=== PATIENT | female | born 1940 | race Caucasian/White ===

== ENCOUNTER 2024-01-16 11:32 | Emergency (ER) | payer MEDICARE, OTHER, SELFPAY ==
[2024-01-16 11:34] VITALS: BP 143/68
--- NOTE | 2024-01-16 13:01 | ED.GENMED ---
History of Present Illness
General
Chief Complaint: Musculo-Skeletal Complaint
Source: patient
Exam Limitations: none
Time Seen by Provider: 01/16/24 11:52
Nursing documentation reviewed up to this point in time: agreed with
History of Present Illness
History of Present Illness:
83 y/o F with h/o HTN
here with left ankle pain after slipping and inverting her left ankle while walking last night
is able to put some weight on it but it is slightly swollen and painful
took tylenol for pain
no foot pain
no knee pain
Past History
Past History
ED Past Medical History: HTN, Hypercholesterolemia and Other (Diverticulitis)
ED Past Surgical History: Bowel resection and Cholecystectomy
Social History
Living: with family
Review of Systems
Review of Systems
Allergies reviewed?: Yes
All Other Systems: Not applicable
Phy Exam
Physical Exam
Physical Exam:
GENERAL: Alert , in no apparent distress, comfortable at rest
HEAD: NCAT
CV: 2+ DP PULSES B/L
NEUROLOGICAL: Alert and oriented, no focal neuro deficits, , 5/5 strength, sensation intact, ambulation slight limp right leg
SKIN: Warm and dry,
MUSCULOSKELETAL: mild STS right ankle with tenderness to malleolus laterally; pain with inversion and eversion;
no tenderness at the base of the 5th metatarsal, no other foot tenderness
no knee/prox tib/fib tenderness, full painless ROM;
PSYCH: Normal and appropriate interaction.
Course
Orders/Labs/Results
Orders:
Orders
01/16/24 11:38
CR Ankle - Left Min 3 Views Urgent
Comment:
Reason For Exam: fall
Vital Signs
Initial and Last Documented VS:
Initial Vital Signs
Temp Pulse Resp BP Pulse Ox
98.1 F 85 18 143/68 94
01/16/24 11:34 01/16/24 11:34 01/16/24 11:34 01/16/24 11:34 01/16/24 11:34
Last Documented Vital Signs
Temp Pulse Resp BP Pulse Ox
98.1 F 85 18 143/68 94
01/16/24 11:34 01/16/24 11:34 01/16/24 11:34 01/16/24 11:34 01/16/24 11:34
MDM/Problems Addressed
Differential Diagnosis Includes:
ankle sprain, ankle fracture
MDM/Problems Addressed:
83 forbes/o F
inverison ankle injury last night
able to partially weight bear
swelling na dpain laterally
no foot tendneress, no knee pain
ankle xrya indep reviewed and neg
suspect sprain
placed in boot and pt has cane and walker at home
rice
*Critical Care Note
Total Time (30-74mins, 75-104mins- exclusive of procedures): Not Applicable
ED Attending Note
-
Portions of this chart may have been created with voice recognition software.� Occasional wrong word or��sound alike� substitutions may have occurred due to the inherent limitations of voice recognition software.
Discharge Plan
Departure
Patient Disposition: Home (Routine Discharge)
Date of Disposition: 01/16/24
Time of Disposition: 13:06
Patient with high blood pressure during this ER visit?: No
Condition: Fair
Discharge Problem:
Left ankle sprain
Instructions: Sprain (DC)
Prescriptions:
No Action
atorvastatin 10 MG tablet
20 mg PO HS
aspirin 81 MG tablet,chewable
81 mg PO DAILY
amlodipine-benazepril 1 EACH capsule
1 ea PO HS
doxycycline hyclate 100 MG capsule
100 mg PO Q12 7 Days Qty: 14 0RF
metronidazole 500 MG tablet
500 mg PO TID 7 Days Qty: 21 0RF
fluconazole 150 MG tablet
150 mg PO DAILY 1 Days Qty: 1 0RF
Rx Instructions:
for development of vaginal yeast infection
Referrals:
Terri Dominique CRNP [Family Provider] -
Activity Restrictions/Additional Instructions:
YOUR XRAY APPEARS NEGATIVE FOR FRACTURE
ICE OFF AND ON, ELEVATE
WHEN YOU WALK, USE THE BOOT AND EITHER A WALKER OR A CANE
TYLENOL FOR PAIN
WITHIN A WEEK OR SO YOU SHOULD BE ABLE TO WALK WITHOUT THE BOOT, IF YOU ARE NOT, PLEASE SEE ORTHO.
Interventions
Interventions:
*Risk Screen - Suicide Last Done: 01/16/24 11:34
*General Assessment Last Done: 01/16/24 11:34
*Neglect/Abuse Screening Last Done: 01/16/24 13:14
ED- Fall Risk Assessment Last Done: 01/16/24 11:59
*ED COVID-19 Vaccine History Last Done: 01/16/24 11:34
*Nursing Disposition Last Done: 01/16/24 13:15
ED-Musculoskeletal Assessment Last Done: 01/16/24 11:59
Discharge Date and Time
Discharge Date/Time: 01/16/24 13:15
Print Language: MALAY
== END 2024-01-16 13:15 | disposition home or self-care (01) ==
LOC: EMR 11:32
PROVIDERS: EMERGENCY PHYSICIAN Emergency Medicine; FAMILY PHYSICIAN Nurse Practitioner Family
DX: S93.402A Sprain of unspecified ligament of left ankle, initial encounter (principal); W18.39XA Other fall on same level, initial encounter; Y93.01 Activity, walking, marching and hiking; I10 Essential (primary) hypertension; E78.00 Pure hypercholesterolemia, unspecified; K57.92 Diverticulitis of intestine, part unspecified, without perforation or abscess without bleeding; Z90.49 Acquired absence of other specified parts of digestive tract; Z98.0 Intestinal bypass and anastomosis status
CPT/HCPCS: 99283; 29515; 73610

== ENCOUNTER 2024-08-31 09:00 | Emergency (ER) | payer MEDICARE, OTHER, SELFPAY ==
[2024-08-31 09:13] VITALS: BP 96/68
[2024-08-31 09:39] LABS: % Basophils 0.8 % (0-2); % Eosinophils 3.9 % (0-6); % Immature Granulocytes 0.7 % (0-0.5); % Monocytes 8.1 % (1.7-9.3); % Neutrophils 44.5 % (42.2-75.2); Absolute Basophils 0.1 10^3/uL (0-0.2); Absolute Eosinophils 0.3 10^3/uL (0-0.7); Absolute Immature Granulocytes 0.1 10^3/uL (0-0.05); Absolute Lymphocytes 3.6 10^3/uL (1.2-3.4); Absolute Monocytes 0.7 10^3/uL (0.1-0.6); Absolute Neutrophils 3.8 10^3/uL (1.4-6.5); Hematocrit 40.4 % (37.0-47.0); Hemoglobin 13.4 g/dL (12.0-16.0); Mean Corp Hgb Conc. 33.2 g/dL (33.0-37.0); Mean Corpuscular Hgb 30.9 pg (27.0-31.0); Mean Corpuscular Volume 93.3 fL (81.0-99.0); Mean Platelet Volume 10.1 fL (7.4-10.4); Nucleated Red Blood Cells % 0 %; Platelet Count 244 10^3/uL (130-400); Red Blood Cell Count 4.33 10^6/uL (4.20-5.40); Red Cell Dist. Width 14.6 % (11.5-14.5); White Blood Cell Count 8.5 10^3/uL (4.8-10.8)
[2024-08-31 09:49] LABS: ALT (SGPT) 30 U/L (0-35); AST (SGOT) 24 U/L (14-36); Albumin 3.7 g/dl (3.5-5.0); Alkaline Phosphatase 61 U/L (38-126); Blood Urea Nitrogen 15 mg/dl (7-17); Calcium 9.9 mg/dl (8.4-10.2); Carbon Dioxide 29 mmol/L (22-30); Chloride 104 mmol/L (98-107); Glucose 116 mg/dl (70-99); Potassium 4.6 mmol/L (3.5-5.1); Sodium 139 mmol/L (135-145); Total Bilirubin 0.6 mg/dl (0.2-1.3); Total Protein 6.2 g/dl (6.3-8.2); eGFR > 60.00
[2024-08-31 10:19] LABS: TSH 1.39 uIU/ml (0.47-4.68)
[2024-08-31 11:04] VITALS: BP 146/97
--- NOTE | 2024-08-31 11:16 | ED.GENMED ---
History of Present Illness
General
Chief Complaint: Heart Rate Problem
Source: patient
Exam Limitations: none
Time Seen by Provider: 08/31/24 11:01
History of Present Illness
History of Present Illness:
See MDM
Past History
Past History
ED Past Medical History: HTN, Hypercholesterolemia and Other (Diverticulitis)
ED Past Surgical History: Bowel resection and Cholecystectomy
Social History
Living: with family
Phy Exam
Physical Exam
Physical Exam:
See MDM
Course
Orders/Labs/Results
Orders:
Orders
08/31/24 09:05
EKG [Electrocardiogram (*1)] Urgent
Reason for Study: Tachycardia
EKG- Treatment ONCE
08/31/24 09:25
Complete Blood Count/With Diff Urgent
Comprehensive Metabolic Panel Urgent
TSH Urgent
08/31/24 11:15
CT Chest PE Study Urgent
Comment:
Reason For Exam: SOB, tachycardic
08/31/24 11:16
US Periph Venous LOWER Ext RT Urgent
Comment:
Reason For Exam: R calf swelling and pain
08/31/24 11:21
NT-proBNP Urgent
Troponin I Urgent
Abnormal Lab Results
08/31/24
09:25
RDW 14.6 H %
(11.5-14.5)
Abs Immat Gran (auto) 0.1 H 10^3/uL
(0-0.05)
Absolute Lymphs (auto) 3.6 H 10^3/uL
(1.2-3.4)
Absolute Monos (auto) 0.7 H 10^3/uL
(0.1-0.6)
Immature Gran % 0.7 H %
(0-0.5)
Glucose 116 H mg/dl
(70-99)
Total Protein 6.2 L g/dl
(6.3-8.2)
08/31/24 09:25
08/31/24 09:25
Vital Signs
Initial and Last Documented VS:
Initial Vital Signs
Temp Pulse Resp BP Pulse Ox
98.1 F 129 18 96/68 98
08/31/24 09:13 08/31/24 09:13 08/31/24 09:13 08/31/24 09:13 08/31/24 09:13
Last Documented Vital Signs
Temp Pulse Resp BP Pulse Ox
98.1 F 89 18 146/97 97
08/31/24 09:13 08/31/24 13:00 08/31/24 13:00 08/31/24 11:04 08/31/24 13:00
MDM/Problems Addressed
Differential Diagnosis Includes:
HPI and MDM Narrative:
84-year-old female presenting for evaluation of shortness of breath and tachycardia. Patient becoming more short of breath with exertion. This appears to be an ongoing issue. She has noted that her heart rate has been going fast with minimal
exertion. She did follow-up with her primary care doctor and was told that she should follow-up with cardiology. She made appointment with a clip coater with Dr. Solorzano but she does not have an appointment until 6 weeks or so. Incidentally,
patient also complained of right calf pain and swelling.
On exam, patient is mildly tachycardic and I have noted multiple PVCs. Blood work done prior to my evaluation and she has a normal TSH and electrolytes. Will add on BNP and troponin. Given her shortness of breath with tachycardia, I am concerned
about possible PE. Will obtain CT PE
Physical exam
General: Well appearing and non-toxic
HEENT: protecting airway
Neck: appears supple
CV: No evidence of cyanosis. Tachycardic
Resp: No accessory muscle use. Lungs clear
Abd: Non-distended
Extremities: +1 pitting edema to right leg
Neuro: alert
Psych: Normal affect
Skin: Intact
Problems Addressed including Acute and Chronic Conditions affecting care:
1. Shortness of breath with exertion
Acuity: acute
Prognosis: stable
Details: Given tachycardia, will obtain CT to rule out PE
2. Right leg pain
Acuity: acute
Prognosis: stable
Details: Will obtain ultrasound rule out DVT
Updates
CT chest negative for PE. We discussed the nonspecific bronchiolitis and pulmonary nodules. Both patient and made aware.
Ultrasound negative for DVT.
I did curbside cardiology and question whether or not patient should be placed on beta-azra. Cardiology suggested having her seen in the office expeditiously rather than started medicine since she is a first time patient
Differential Diagnosis (but not limited to): Pulmonary embolism, symptomatic tachycardia, A-fib, DVT
Testing considered: D-dimer
Drug therapy (if applicable): OTC meds, please see d/c instruction regarding Rx drugs
Amount and/or Complexity of Data Reviewed
Clinical info obtained from: Patient
External data reviewed: N/A
Labs I independently reviewed (but not limited to): TSH normal
Radiology: The CT scan was personally and independently reviewed. In addition, official CT report reviewed.
Pulse Ox: not hypoxic
EKG independently reviewed: Sinus tachycardia, PVCs, left axis, no STEMI
Knitted Cloth Examiner: Sinus tachycardia
Critical Care: N/A
Risk of Complication:
Social Determinants of health: Good social support
Discussed with other providers: Cardiology
Escalation of Care includes Admit/Obs: After being observed in the Emergency Department, pt stable for discharge.
Occasional wrong word or 'sound a like' substitutions may have occurred due to the inherent limitations of voice recognition software. Read the chart carefully and recognize, using context, where substitutions have occurred.
*Critical Care Note
Total Time (30-74mins, 75-104mins- exclusive of procedures): Not Applicable
ED Attending Note
-
Portions of this chart may have been created with voice recognition software.� Occasional wrong word or��sound alike� substitutions may have occurred due to the inherent limitations of voice recognition software.
Discharge Plan
Departure
Patient Disposition: Home (Routine Discharge)
Date of Disposition: 08/31/24
Time of Disposition: 14:03
Patient with high blood pressure during this ER visit?: No
Discharge Problem:
Heart palpitations
Instructions: Palpitations (DC), Chest Pain DCA Follow Up
Prescriptions:
No Action
atorvastatin 10 MG tablet
20 mg PO HS
aspirin 81 MG tablet,chewable
81 mg PO DAILY
amlodipine-benazepril 1 EACH capsule
1 ea PO HS
doxycycline hyclate 100 MG capsule
100 mg PO Q12 7 Days Qty: 14 0RF
metronidazole 500 MG tablet
500 mg PO TID 7 Days Qty: 21 0RF
fluconazole 150 MG tablet
150 mg PO DAILY 1 Days Qty: 1 0RF
Rx Instructions:
for development of vaginal yeast infection
Referrals:
Gabe Solorzano MD [Active] -
Terri Dominique CRNP [Family Provider] -
Activity Restrictions/Additional Instructions:
Please return for any worsening symptoms.
You may return at any time if you have further concerns.
Please follow up with your doctor at the first available appointment, preferably this week.
You were placed on the cardiac callback tracker. Someone from their office should call you in the next few days. If you do not hear from them in the next few days, please give them a call.
Thank you for choosing [facility].
Interventions
Interventions:
*Risk Screen - Suicide Last Done: 08/31/24 09:13
*General Assessment Last Done: 08/31/24 09:13
*Neglect/Abuse Screening Last Done: 08/31/24 09:13
ED- Fall Risk Assessment Last Done: 08/31/24 11:48
*ED COVID-19 Vaccine History Last Done: 08/31/24 09:13
ED- Cardiac Assessment Last Done: 08/31/24 11:48
ED- Pulmonary Assessment Last Done: 08/31/24 11:48
Discharge Date and Time
Print Language: [place]ICAN CITIZEN
[2024-08-31 11:47] VITALS: BMI 30.9
[2024-08-31 11:50] LABS: NT-proBNP 269 pg/ml; Troponin I < 0.012 ng/ml
== END 2024-08-31 14:20 | disposition home or self-care (01) ==
LOC: EMR 09:00
PROVIDERS: EMERGENCY PHYSICIAN Student in an Organized Health Care Education/Training Program; FAMILY PHYSICIAN Nurse Practitioner Family
DX: R00.2 Palpitations (principal); R06.02 Shortness of breath; M79.661 Pain in right lower leg; R22.41 Localized swelling, mass and lump, right lower limb; I10 Essential (primary) hypertension; E78.00 Pure hypercholesterolemia, unspecified; Z90.49 Acquired absence of other specified parts of digestive tract; R91.8 Other nonspecific abnormal finding of lung field
CPT/HCPCS: 99284; 71275; 80053; 83880; 84443; 84484; 85025; 93005; 93971; Q9967

== ENCOUNTER → 2024-09-03 10:54 | Outpatient (REF) | payer MEDICARE, OTHER, SELFPAY | LOC: RAD 10:54 | PROVIDERS: ATTENDING PHYSICIAN Internal Medicine Gastroenterology; FAMILY PHYSICIAN Nurse Practitioner Family | DX: R14.2 Eructation (principal) | CPT/HCPCS: 74246 ==

== ENCOUNTER → 2024-10-12 09:49 | Outpatient (REF) | payer MEDICARE, OTHER, SELFPAY | LOC: RST 09:49 | PROVIDERS: ATTENDING PHYSICIAN Internal Medicine Gastroenterology; FAMILY PHYSICIAN Nurse Practitioner Family | DX: R13.13 Dysphagia, pharyngeal phase (principal) | CPT/HCPCS: 74230; 92611 ==

== ENCOUNTER → 2025-02-22 17:35 | Outpatient (REF) | payer MEDICARE, OTHER, SELFPAY | LOC: RAD 17:35 | PROVIDERS: ATTENDING PHYSICIAN Internal Medicine Critical Care Medicine; FAMILY PHYSICIAN Nurse Practitioner Family | DX: R91.8 Other nonspecific abnormal finding of lung field (principal) | CPT/HCPCS: 71250 ==

== ENCOUNTER 2025-03-03 12:05 | Emergency (ER) | payer MEDICARE, OTHER, SELFPAY ==
[2025-03-03 12:07] VITALS: BP 148/64
--- NOTE | 2025-03-03 13:41 | ED.GENMED ---
History of Present Illness
General
Chief Complaint: Musculo-Skeletal Complaint
Source: patient
Exam Limitations: none
Time Seen by Provider: 03/03/25 13:23
History of Present Illness
History of Present Illness:
85yoF with a history of hypertension, hyperlipidemia, and spinal stenosis presenting for evaluation of left leg pain. Patient has been having ongoing issues with low back pain over the past several months. She was previously following with pain
management and had an MRI of her lumbar spine in June 2024 when she was diagnosed with spinal stenosis. She previously received steroid injections which helped temporarily. She started to notice her pain radiated down the left anterior leg a
few days ago. Pain has been worsening since yesterday and now hurts with weightbearing. She has been taking Tylenol without relief. She denies any trauma. No paresthesias, bowel/bladder issues, or fevers.
Past History
Past History
ED Past Medical History: HTN, Hypercholesterolemia and Other (Diverticulitis)
ED Past Surgical History: Bowel resection and Cholecystectomy
Social History
Living: with family
Phy Exam
General Physical Exam
General Presentation: well appearing and no apparent distress
General Skin: warm and dry
General Habitus: normal and elderly
General Mental: alert
ENT Exam
ENT Exam: normocephalic
Neurological Exam
Neurological Exam: alert
[place] Coma Scale
Eye Opening: Spontaneous
Verbal Response: Oriented
Motor Response: Obeys Commands
GCS Total Score: 15
Musculoskeletal Exam
Musculoskeletal Exam: other (L leg is normal to inspection without skin changes or pitting edema. ROM of L hip and knee intact. No tenderness in lumbar region. 2+ DP pulse and sensation intact.)
Skin Exam
Skin Exam: normal color and warm/dry
Psychiatric Exam
Psychiatric Exam: normal mood/affect
Course
Orders/Labs/Results
Orders:
Orders
03/03/25 12:10
US Legs, Left [US Periph Venous LOWER Ext LT] Urgent
Comment:
Reason For Exam: worsening left leg pain
Vital Signs
Initial and Last Documented VS:
Initial Vital Signs
Temp Pulse Resp BP Pulse Ox
98.1 F 70 18 148/64 98
03/03/25 12:07 03/03/25 12:07 03/03/25 12:07 03/03/25 12:07 03/03/25 12:07
Last Documented Vital Signs
Temp Pulse Resp BP Pulse Ox
98.1 F 70 18 148/64 98
03/03/25 12:07 03/03/25 12:07 03/03/25 12:07 03/03/25 12:07 03/03/25 13:43
MDM/Problems Addressed
Differential Diagnosis Includes:
85yoF here with atraumatic L leg pain x several days. Ongoing issues with low back pain and pain now radiating down anterior leg. Patient worried about a DVT. LLE is neurovascularly intact with 2+ DP pulse. Differential diagnosis includes: lumbar
radiculopathy, muscular strain, sciatica, less likely DVT
Venous duplex obtained which is negative for DVT. No indication for lumbar spine imaging at this time given that her back pain is improving and there are no red flags in history. She was started on a course of prednisone. She has an appt scheduled
with [facility] orthopedics in 2 weeks. ED return precautions reviewed and she was discharged in stable condition.
*Pulse Oximetry
SaO2: 98
Oxygen Mode of Delivery: Room air
Patient hypoxic: no (98%)
*Critical Care Note
Total Time (30-74mins, 75-104mins- exclusive of procedures): Not Applicable
ED Attending Note
-
Portions of this chart may have been created with voice recognition software.� Occasional wrong word or��sound alike� substitutions may have occurred due to the inherent limitations of voice recognition software.
Discharge Plan
Departure
Patient Disposition: Home (Routine Discharge)
Date of Disposition: 03/03/25
Time of Disposition: 13:43
Patient with high blood pressure during this ER visit?: Yes
Discharge Problem:
Low back pain radiating to left lower extremity
Instructions: Lumbar spinal stenosis
Prescriptions:
New
prednisone 50 mg tablet
50 mg PO DAILY Qty: 5 0RF
No Action
atorvastatin 10 MG tablet
20 mg PO HS
aspirin 81 MG tablet,chewable
81 mg PO DAILY
amlodipine-benazepril 1 EACH capsule
1 ea PO HS
doxycycline hyclate 100 MG capsule
100 mg PO Q12 7 Days Qty: 14 0RF
metronidazole 500 MG tablet
500 mg PO TID 7 Days Qty: 21 0RF
fluconazole 150 MG tablet
150 mg PO DAILY 1 Days Qty: 1 0RF
Rx Instructions:
for development of vaginal yeast infection
Referrals:
UNKNOWN - PT NOT,INTERVIEWE [Family Provider]
Activity Restrictions/Additional Instructions:
Take prednisone as prescribed. You may continue taking Tylenol as needed.
Please follow-up with orthopedics as previously scheduled as well as your family doctor. Return to the ER with any new or worsening symptoms.
Interventions
Interventions:
*Risk Screen - Suicide Last Done: 03/03/25 12:07
*General Assessment Last Done: 03/03/25 12:07
*Neglect/Abuse Screening Last Done: 03/03/25 12:07
*ED- Fall Risk Assessment Last Done: 03/03/25 12:21
*ED COVID-19 Vaccine History Last Done: 03/03/25 12:21
*Nursing Disposition Last Done: 03/03/25 13:51
ED-Musculoskeletal Assessment Last Done: 03/03/25 12:21
Discharge Date and Time
Discharge Date/Time: 03/03/25 13:51
Print Language: CROAT[place]
== END 2025-03-03 13:51 | disposition home or self-care (01) ==
LOC: EMR 12:05
PROVIDERS: EMERGENCY PHYSICIAN Emergency Medicine
DX: M54.50 Low back pain, unspecified (principal); M79.605 Pain in left leg; M48.00 Spinal stenosis, site unspecified; I10 Essential (primary) hypertension; E78.00 Pure hypercholesterolemia, unspecified; Z90.49 Acquired absence of other specified parts of digestive tract
CPT/HCPCS: 99284; 93971

== ENCOUNTER → 2025-03-28 11:51 | Outpatient (REF) | payer MEDICARE, OTHER, SELFPAY | LOC: PAVMRI 11:51 | PROVIDERS: ATTENDING PHYSICIAN Physician Assistant; FAMILY PHYSICIAN Nurse Practitioner Family | DX: M47.816 Spondylosis without myelopathy or radiculopathy, lumbar region (principal) | CPT/HCPCS: 72148 ==

== ENCOUNTER → 2025-06-01 11:30 | Outpatient (REF) | payer MEDICARE, OTHER, SELFPAY | LOC: HWRAD 11:30 | PROVIDERS: ATTENDING PHYSICIAN Internal Medicine Critical Care Medicine; FAMILY PHYSICIAN Nurse Practitioner Family | DX: R91.8 Other nonspecific abnormal finding of lung field (principal) | CPT/HCPCS: 71250 ==